=== PATIENT | male | born 1985 | race Caucasian/White ===

== ENCOUNTER 2021-08-25 07:50 | Day surgery (SDC) | payer OTHER ==
[~2021-08-25] VITALS: Ht 180.3 cm; Wt 130.0 kg
[2021-08-25] VITALS (8 sets, daily range): BP systolic 112–152; BP diastolic 57–86
[2021-08-25] MEDS ORDERED: PROTONIX40 M2 PO (08:33)
[2021-08-25] MEDS ORDERED: VENTOLIN HFA IN (08:34)
[2021-08-25 08:41] LABS: HEMATOCRIT 46.1 % (39.0-50.0); IMMATURE GRANULOCYTES 0.1 % (0.0-5.0); MEAN CORPUSCULAR HGB 29.9 pG CALC (26.0-32.0); MEAN CORPUSCULAR HGB CONC 32.5 g/dL CAL (32.0-36.0); NEUT# 5.84 thou/uL (1.82-7.42); RED BLOOD COUNT 5.01 mill/uL (4.70-6.10); RED CELL DISTRI WIDTH 12.8 % (11.5-15.5)
[2021-08-25 08:56] LABS: ALBUMIN 4.3 g/dL (3.2-5.0); ALKALINE PHOSPHATASE 48 u/l (38-126); ANION GAP 12 (6-22 (CALC)); BILIRUBIN, TOTAL 0.5 mg/dL (0.0-1.4); BUN 17 mg/dL (9-20); BUN/CREATININE RATIO 19 (12-20 (CALC)); CARBON DIOXIDE 28 mmol/l (22-30); CHLORIDE 102 mmol/l (95-108); CREATININE 0.9 mg/dL (0.7-1.3); GFR > 60 ML/MIN (>=60 (CALC)); GFR FOR AFR.AMER. > 60 ML/MIN (>=60 (CALC)); POTASSIUM 4.1 mmol/l (3.5-5.1); SGOT/AST 37 u/l (17-59); SODIUM 137 mmol/l (137-146); TOTAL PROTEIN 7.3 g/dL (6.3-8.2)
[2021-08-25] MEDS ORDERED: CLONIDINE HCL0.1 MG PO (16:08)
[2021-08-25] MEDS ORDERED: CLONAZEPAM1 M1 PO (16:09)
[2021-08-26] VITALS: BP 119/64
[2021-08-26 04:00] VITALS: BP 103/49
[2021-08-26 05:09] LABS: ALBUMIN 4.7 g/dL (3.2-5.0); ALKALINE PHOSPHATASE 59 u/l (38-126); ANION GAP 17 (6-22 (CALC)); BILIRUBIN, TOTAL 0.8 mg/dL (0.0-1.4); BUN 16 mg/dL (9-20); BUN/CREATININE RATIO 19 (12-20 (CALC)); CARBON DIOXIDE 24 mmol/l (22-30); CHLORIDE 102 mmol/l (95-108); CREATININE 0.8 mg/dL (0.7-1.3); GFR > 60 ML/MIN (>=60 (CALC)); GFR FOR AFR.AMER. > 60 ML/MIN (>=60 (CALC)); MAGNESIUM 2.2 mg/dL (1.6-2.3); POTASSIUM 4.2 mmol/l (3.5-5.1); SGOT/AST 48 u/l (17-59); SODIUM 139 mmol/l (137-146); TOTAL PROTEIN 7.8 g/dL (6.3-8.2)
[2021-08-26 08:15] VITALS: BP 106/56
== END 2021-08-26 13:03 | disposition home or self-care (01) | DRG 897 ==
LOC: ANR 07:50 → EDBD 07:50 → MS2 07:50 → ANR 08:19
PROVIDERS: ATTEND Anesthesiology
DX: F11.20 Opioid dependence, uncomplicated (principal)
CPT/HCPCS: J2060